=== PATIENT | male | born 1965 | race Caucasian/White ===

== ENCOUNTER 2018-08-24 03:09 | Emergency (ER) | payer MEDICAID, MEDICARE ==
[~2018-08-24] VITALS: Ht 170.2 cm; Wt 65.0 kg
[2018-08-24] MEDS ORDERED: PERMETHRIN 5% CREAM 60GM TOP ONE (03:15)
[2018-08-24] MEDS ORDERED: OLANZAPINE 10 MG/VIAL IM ONE (04:15)
[2018-08-24 04:47] LABS: BASOPHILS % 0.9 % (0.0-2.0); EOSINOPHILS % 5.9 % (0.0-5.0); HEMATOCRIT. 38.3 % (42.0-52.0); LYMPHOCYTES % 37.1 % (20.0-50.0); MEAN CORPUSCULAR HEMOGLOBIN 32.2 pg (28.0-32.0); MEAN CORPUSCULAR VOLUME 95.1 fL (80.0-94.0); MONOCYTES % 9.5 % (2.0-8.0); NEUTROPHILS % 46.6 % (40.0-76.0); PLATELET 129 x1000/uL (130-400); RED BLOOD CELL COUNT 4.03 mill/uL (4.7-6.1); RED CELL DISTRIBUTION WIDTH 14.8 % (11.6-14.6)
[2018-08-24 04:53] LABS: CHLORIDE 114 mEq/L (98-107)
[2018-08-24 05:05] LABS: ETHANOL BLOOD 252 mg/dL
[2018-08-24 05:28] LABS: CLARITY URINE CLEAR (CLEAR); COLOR URINE YELLOW (YELLOW); KETONES URINE NEGATIVE (NEGATIVE); LEUKOCYTE ESTERASE URINE NEGATIVE (NEGATIVE); NITRITE URINE NEGATIVE (NEGATIVE); OCCULT BLOOD URINE NEGATIVE (NEGATIVE); PROTEIN URINE NEGATIVE (NEGATIVE); SPECIFIC GRAVITY URINE 1.004 (1.005-1.030); UROBILINOGEN URINE 0.2 E.U./dL (0.2-1.0)
[2018-08-24 06:05] LABS: *AMPHETAMINES SCREEN URINE PRESUMTIVE POSITIVE (NEGATIVE); *BARBITURATES SCREEN URINE NEGATIVE (NEGATIVE); *BENZODIAZEPINES SCREEN URINE NEGATIVE (NEGATIVE)
[2018-08-24 06:06] LABS: *COCAINE SCREEN URINE NEGATIVE (NEGATIVE); CANNABINOID URINE SCREEN NEGATIVE (NEGATIVE); METHADONE URINE SCREEN NEGATIVE (NEGATIVE); OPIATES URINE SCREEN NEGATIVE (NEGATIVE); PHENCYCLIDINE URINE SCREEN NEGATIVE (NEGATIVE)
[2018-08-24] MEDS ORDERED: CHLORDIAZEPOXIDE 25MG CAPSULE PO ONE (07:00)
[2018-08-24] MEDS ORDERED: LORAZEPAM 2MG/ML CPJ IM PRN (07:00)
[2018-08-24] MEDS ORDERED: HALOPERIDOL LACTATE 5MG/ML VIAL IM ONE (07:00)
[2018-08-26 12:37] VITALS: BP 135/92
== END 2018-08-26 13:12 | disposition home or self-care (01) ==
LOC: ER 03:09
DX: T43.622A Poisoning by amphetamines, intentional self-harm, initial encounter (principal); T51.0X2A Toxic effect of ethanol, intentional self-harm, initial encounter; F15.129 Other stimulant abuse with intoxication, unspecified; F10.129 Alcohol abuse with intoxication, unspecified; Y90.8 Blood alcohol level of 240 mg/100 ml or more; R41.82 Altered mental status, unspecified; R45.1 Restlessness and agitation; Z78.1 Physical restraint status; R21 Rash and other nonspecific skin eruption; Y92.89 Other specified places as the place of occurrence of the external cause; Z59.0 Homelessness
CPT/HCPCS: 36415; 80053; 80305; 80307; 80320; 80329; 81003; 85025; 93005; 96372; 99284; J1630; J2060; J3490; Z7610; G0480